=== PATIENT | male | born 1970 | race Two or more races ===

== ENCOUNTER 2024-01-15 17:35 | Emergency (ER) | payer BC ==
[~2024-01-15] VITALS: Ht 167.6 cm; Wt 90.9 kg
[2024-01-15] MEDS: BACITRACIN 0.9 GM PACKET OINTMENT TP ONE (18:14)
[2024-01-15] MEDS: ACETAMINOPHEN 500 MG TABLET PO ONE (18:14)
[2024-01-15] MEDS: PERTUSS(ACELL),DIPH,TET/PF 0.5 ML SYRINGE [ADULT] IM. ONE (18:32)
[2024-01-15 20:00] VITALS: BP 130/78; PULSE 80; RESP 16; TEMP 98.5
== END 2024-01-15 20:31 | disposition home or self-care (01) ==
LOC: EMS 17:35
DX: S00.81XA Abrasion of other part of head, initial encounter (principal); S09.90XA Unspecified injury of head, initial encounter; I10 Essential (primary) hypertension; F17.210 Nicotine dependence, cigarettes, uncomplicated; W19.XXXA Unspecified fall, initial encounter; Y93.89 Activity, other specified; Y92.89 Other specified places as the place of occurrence of the external cause; Y99.8 Other external cause status
CPT/HCPCS: 70450; 70486; 72125; 90471; 90715; 99285